=== PATIENT | male | born 1955 | race Caucasian/White ===

== ENCOUNTER 2020-11-26 18:18 | Outpatient (REF) | payer OTHER, SELFPAY ==
[2020-11-27 11:54] LABS: COVID-19 RT-PCR UVMMC Result Negative (Negative)
== END 2020-11-26 18:19 | disposition home or self-care (01) ==
LOC: NCHCN 18:18
PROVIDERS: Visit Provider Registered Nurse
DX: J06.9 Acute upper respiratory infection, unspecified (principal); Z20.822 Contact with and (suspected) exposure to COVID-19
CPT/HCPCS: U0003

== ENCOUNTER 2022-11-11 09:19 | Outpatient (REF) | payer MEDICARE, SELFPAY ==
[2022-11-11 16:57] LABS: Calculated LDL 80 mg/dL (<100); Cholesterol 140 mg/dL (<200); HDL Cholesterol 44 mg/dL (40-60); Triglyceride 83 mg/dL (<150)
[2022-11-11 22:19] LABS: PSA, Screening 1.1 ng/mL (<=4.5)
== END 2022-11-11 09:20 | disposition home or self-care (01) ==
LOC: NCHCN 09:19
PROVIDERS: Visit Provider Internal Medicine
DX: Z13.6 Encounter for screening for cardiovascular disorders (principal); Z12.5 Encounter for screening for malignant neoplasm of prostate; Z00.00 Encounter for general adult medical examination without abnormal findings
CPT/HCPCS: 80061; 84153

== ENCOUNTER 2024-12-07 16:04 | Outpatient (REF) | payer MEDICARE, SELFPAY ==
[2024-12-07 14:34] LABS: HCT 39.8 % (40.0-50.0); HGB 13.4 g/dL (13.5-17.5); MCH 29.7 pg (27.0-33.0); MCHC 33.7 % (32.0-36.0); MCV 88 fL (80-95); MPV 11.2 fL (8.0-11.0); Platelet Count 189 10^3/uL (130-400); RBC 4.51 10^6/uL (4.36-5.78); RDW 12.7 % (11.8-14.1); RDW-SD 41.2 fL; WBC 4.05 10^3/uL (4.4-10.8)
[2024-12-07 15:09] LABS: ALT 36 U/L (16-63); AST 30 U/L (15-37); Albumin 3.9 g/dL (3.4-5.0); Alkaline Phosphatase 87 U/L (46-116); Anion Gap 7.4 mmol/L (3-11); BUN 24 mg/dL (7-18); Bilirubin, Total 1.6 mg/dL (0.2-1.0); CO2 28.6 mmol/L (21.0-32.0); Calcium 9.0 mg/dL (8.5-10.1); Chloride 104 mmol/L (98-107); Estimated GFR 100.37 (mL/min/1.73m2); Glucose 102 mg/dL (74-106); Potassium 4.2 mmol/L (3.5-5.1); Sodium 140 mmol/L (136-145); Total Protein 7.0 g/dL (6.4-8.2)
== END 2024-12-07 16:05 | disposition home or self-care (01) ==
LOC: NCHCN 16:04
PROVIDERS: PCP Internal Medicine; Visit Provider Internal Medicine
DX: R00.1 Bradycardia, unspecified (principal)
CPT/HCPCS: 80053; 85027

== ENCOUNTER 2024-12-14 18:04 | Outpatient (REF) | payer MEDICARE, SELFPAY ==
[2024-12-14 15:31] LABS: Iron 102 ug/dL (65-175); Total Iron Binding Capacity 436 ug/dL (250-450); Transferrin Sat 23 % (20-55)
[2024-12-14 15:50] LABS: Bilirubin, Direct 0.3 mg/dL (0.0-0.2); Ferritin 16 ng/mL (26-388); Folate > 20.0 ng/mL (8.6-20.0); Vitamin B12 814 pg/mL (193-986)
== END 2024-12-14 18:05 | disposition home or self-care (01) ==
LOC: NCHCN 18:04
PROVIDERS: PCP Internal Medicine; Visit Provider Internal Medicine
DX: R79.89 Other specified abnormal findings of blood chemistry (principal)
CPT/HCPCS: 82248; 82607; 82728; 82746; 83540; 83550

== ENCOUNTER 2025-01-10 16:16 | Outpatient (REF) | payer MEDICARE, SELFPAY | END 2025-01-10 16:17 | disposition home or self-care (01) | LOC: NCHCN 16:16 | PROVIDERS: PCP Internal Medicine; Visit Provider Internal Medicine | DX: D64.9 Anemia, unspecified (principal) | CPT/HCPCS: 82784; 83516 ==